=== PATIENT | female | born 1990 | race Caucasian/White ===

== ENCOUNTER 2017-01-30 12:15 | Emergency (ER) | payer MEDICAID ==
[~2017-01-30] VITALS: Ht 157.5 cm; Wt 59.0 kg
[2017-01-30 12:16] VITALS: Ht 157.5 cm; Wt 59.0 kg
[2017-01-30] MEDS ORDERED: HYDR-906 PO (16:28)
[2017-01-30] MEDS ORDERED: NAPR-688 PO (16:28)
--- NOTE | 2017-01-30 16:40 | ERD ---
ER Documentation Chief Complaint Chief Complaint BIB SELF C/O SORE THROAT X 1 WEEK HPI 26-year-old female presents with sore throat for almost a week now. Ankle swelling able to swallow secretions and is eating and drinking well. She has on and off fevers. No other symptoms. She has no ear pain. She is otherwise healthy. Ibuprofen earlier which took away her pain. ROS All systems reviewed and are negative except as per history of present illness. Medications Home Meds Active Scripts Naproxen* (Naproxen*) 500 Mg Tablet, 500 MG PO BID, #20 TAB Prov:SUSANNAH ARANGO DO 01/30/17 Hydrocodone/Acetaminophen (Ster[place] 5-325 Tablet) 1 Each Tablet, 1 EACH PO Q6 for SEVERE PAIN LEVEL 7-10, #14 TAB Prov:SUSANNAH ARANGO DO 01/30/17 Allergies Allergies: Coded Allergies: No Known Allergy (Unverified , 03/08/16) PMhx/Soc Medical and Surgical Hx: pt denies Medical Hx, pt denies Surgical Hx History of Surgery: No Anesthesia Reaction: No Hx Neurological Disorder: No Hx Respiratory Disorders: No Hx Cardiac Disorders: No Hx Psychiatric Problems: No Hx Miscellaneous Medical Probl: No Hx Alcohol Use: No Hx Substance Use: No Hx Tobacco Use: No Smoking Status: Never smoker Physical Exam Vitals Vital Signs Date Time Temp Pulse Resp B/P Pulse Ox O2 Delivery O2 Flow Rate FiO2 01/30/17 12:16 97.8 90 20 113/73 100 Physical Exam Const: [] Distress Head: Atraumatic Eyes: Normal Conjunctiva ENT: Normal External Ears, Nose and Mouth. Drinks within normal limits. No erythema or tonsillar swelling. Neck: Full range of motion..~ No meningismus. Procedures/MDM Viral pharyngitis and 26-year-old female. Negative strep test. We will discharge with a few [place] for severe pain in the proximal and otherwise. Primary care follow-up in 2 3 days and return precautions. Departure Diagnosis: Primary Impression: Acute pharyngitis Condition: Stable Patient Instructions: Pharyngitis, Viral Additional Instructions: Call your primary care doctor TOMORROW for an appointment during the next 2-3 days.See the doctor sooner or return here if your condition worsens before your appointment time. SUSANNAH ARANGO DO Jan 30, 2017 16:40
== END 2017-01-30 16:42 | disposition home or self-care (01) ==
LOC: FTE 12:15
DX: J02.9 Acute pharyngitis, unspecified (principal)
CPT/HCPCS: 87880; Z7502; 99283

== ENCOUNTER 2017-06-21 19:35 | Emergency (ER) | END 2017-06-21 19:45 | disposition left against medical advice (07) ==